=== PATIENT | female | born 1960 | race Caucasian/White ===

== ENCOUNTER 2019-03-06 08:23 | Emergency (ER) | payer MEDICAID ==
[~2019-03-06] VITALS: Ht 162.6 cm; Wt 61.1 kg
[~2019-03-06 08:23] MED LIST: BECL7.3A7 INH; CALC300T4 PO; ESOM20CA PO; FERR325C PO; IBUP-1984 PO; LISI40TA4 PO; METO25TA6 PO
[2019-03-06 08:27] VITALS: BP 158/111
[2019-03-07] MEDS ORDERED: HYDR-4383 PO (14:52)
[2019-03-07] MEDS ORDERED: AMLO2.5T2 PO (14:52)
== END 2019-03-06 10:06 | disposition home or self-care (01) ==
LOC: ER 08:25
DX: R07.81 Pleurodynia (principal); I10 Essential (primary) hypertension; J44.9 Chronic obstructive pulmonary disease, unspecified; F12.90 Cannabis use, unspecified, uncomplicated; F15.90 Other stimulant use, unspecified, uncomplicated; F10.99 Alcohol use, unspecified with unspecified alcohol-induced disorder; Z98.890 Other specified postprocedural states; Z90.89 Acquired absence of other organs; Z56.0 Unemployment, unspecified; Z79.899 Other long term (current) drug therapy; W01.0XXA Fall on same level from slipping, tripping and stumbling without subsequent striking against object, initial encounter; Y93.89 Activity, other specified; Y92.89 Other specified places as the place of occurrence of the external cause; Y99.8 Other external cause status; Y90.9 Presence of alcohol in blood, level not specified
CPT/HCPCS: 99281

== ENCOUNTER 2019-03-08 10:23 | Day surgery (SDC) | payer MEDICAID ==
[2019-03-08] VITALS (7 sets, daily range): BP systolic 115–160; BP diastolic 67–92
[~2019-03-08] VITALS: Ht 165.1 cm; Wt 61.1 kg
[~2019-03-08 10:23] MED LIST changes: +AMLO2.5T2 PO; -CALC300T4 PO; -ESOM20CA PO; -FERR325C PO; +HYDR-4383 PO; -IBUP-1984 PO; -LISI40TA4 PO; -METO25TA6 PO
[2019-03-08] MEDS ORDERED: ceFAZolin 1GM/D5W- ADD-VANTAGE 50 ML IV ONE (11:00)
[2019-03-08] MEDS ORDERED: ringers solution, lacted 1,000 ML IV SCH ×2 (11:00→14:06)
[2019-03-08] MEDS ORDERED: famotidine 20mg tablet PO ONE (11:00)
[2019-03-08 11:27] LABS: BASOPHILS # (AUTO) 0.1 X10'3 (0-0.2); BASOPHILS % (AUTO) 1.3 % (0-1); EOSINOPHILS # (AUTO) 0.3 X10'3 (0-0.9); EOSINOPHILS % (AUTO) 4.2 % (0-6); LYMPHOCYTES # (AUTO) 1.7 X10'3 (1.1-4.8); MEAN CORPUSCULAR HEMOGLOBIN 32.2 PG (27.0-31.0); MEAN CORPUSCULAR HGB CONC 33.9 g/dL (33.0-36.5); MEAN PLATELET VOLUME 9.9 FL (7.4-10.4); MONOCYTES # (AUTO) 0.6 X10'3 (0-0.9); MONOCYTES % (AUTO) 9.6 % (2-12); NEUTROPHILS # (AUTO) 3.4 X10'3 (1.8-7.7); NEUTROPHILS % (AUTO) 56.9 % (42-75); PRE OP HEMOGLOBIN 15.6 g/dL (12.0-16.0); PRE OP PLATELET COUNT 152 X10'3 (140-440); RED BLOOD COUNT 4.84 X10'6 (4.20-5.60)
[2019-03-08 11:36] LABS: ALBUMIN 3.4 G/DL (3.4-5.0); ALKALINE PHOSPHATASE 76 IU/L (46-116); BLOOD UREA NITROGEN 15 MG/DL (7-18); BUN/CREATININE RATIO 19.2 (6.6-38.0); CALCIUM 9.1 MG/DL (8.5-10.1); CHLORIDE 107 MMOL/L (99-107); CREATININE 0.78 MG/DL (0.40-0.90); PRE OP ALT 17 U/L (30-65); PRE OP ANION GAP 7 (8-16); PRE OP AST 15 U/L (10-37); PRE OP BILIRUB, TOTAL 0.4 MG/DL (0.0-1.0); PRE OP GLUCOSE 88 MG/DL (70-104); PRE OP POTASSIUM 4.2 MMOL/L (3.4-5.1); PRE OP SODIUM 140 MMOL/L (135-145); TOTAL CARBON DIOXIDE 25.6 MMOL/L (24-32); TOTAL PROTEIN 6.9 G/DL (6.4-8.2); eGFR 76 ML/MIN
[2019-03-08] MEDS ORDERED: BUPIVAcaine/PF 2.5 mg/ml (0.25%) 30ml vial ONE (12:19)
[2019-03-08 12:54] LABS: PRE OP PROTIME 10.3 SECONDS (9.0-12.0)
[2019-03-08] MEDS ORDERED: cloNIDine hcl/PF 100mcg/ml inj ONE (12:56)
[2019-03-08] MEDS ORDERED: ROPIVAcaine 0.5% (5mg/ml) 30ml vial ONE (12:56)
[2019-03-08] MEDS ORDERED: sevoflurane 250ml liquid IH ONE (13:16)
[2019-03-08] MEDS ORDERED: labetalol 20mg/4ml (5mg/ml) syringe IV ONE (13:16)
[2019-03-08] MEDS ORDERED: fentaNYL/PF 50MCG/1 ML 2ML syringe ONE (13:20)
[2019-03-08] MEDS ORDERED: midazolam 2 mg/2 ml injection ONE (13:20)
[2019-03-08] MEDS ORDERED: propofol inj 20 ML IV ONE (13:21)
[2019-03-08] MEDS ORDERED: ondansetron/PF 4mg/2ml inj IV PRN (14:10)
[2019-03-08] MEDS ORDERED: proCHLORperazine 10 MG/2 ml inj IV PRN (14:10)
[2019-03-08] MEDS ORDERED: morphine 4 MG/ML inj SYRINge IV PRN ×2 (14:10)
[2019-03-08] MEDS ORDERED: meperidine/PF 25mg/ml syringe IV PRN ×3 (14:10)
--- NOTE | 2019-03-08 14:25 | NUR ---
Received from OR via BED, accompanied by Anesthesiologist DR MANUEL-- and report given by Anesthesiolgist. PATIENT A&OX4, DENIES PAIN, V/S WNL, NEUROVASCULAR CHECKS INTACT, 20G PIV LUE, SCD ON, SPLINT DRESSING CDI TO GONZALES
--- NOTE | 2019-03-08 15:15 | NUR ---
PATIENT A&OX4, DENIES PAIN, V/S WNL, NEUROVASCULAR CHECKS INTACT, 20G PIV LUE D/C, SCD OFF, SPLINT DRESSING CDI TO RUE. I HAVE REVIEWED D/C INSTRUCTIONS WITH PATIENT AND FAMILY AND THEY HAVE VERBALIZED UNDERSTANDING. PATIENT D/C HOME WITH ALL BELONGINGS AND FAMILY GAVE TRANSPORT HOME
== END 2019-03-08 15:15 | disposition home or self-care (01) ==
LOC: PRE-OP 10:23 → PAS 15:15
PROVIDERS: ATTEND Orthopaedic Surgery
DX: S52.571A Other intraarticular fracture of lower end of right radius, initial encounter for closed fracture (principal); I10 Essential (primary) hypertension; D64.9 Anemia, unspecified; J44.9 Chronic obstructive pulmonary disease, unspecified; F17.210 Nicotine dependence, cigarettes, uncomplicated; Z79.899 Other long term (current) drug therapy; Z79.01 Long term (current) use of anticoagulants; X50.9XXA Other and unspecified overexertion or strenuous movements or postures, initial encounter; Y93.89 Activity, other specified; Y92.89 Other specified places as the place of occurrence of the external cause; Y99.8 Other external cause status; Z98.890 Other specified postprocedural states
CPT/HCPCS: 25609; 36415; 71045; 73100; 76000; 80053; 85025; 85610; 85730; 93005; A6222; C1713; J0690; J0735; J2250; J2704; J3010; J3490; J7120; A4618; A6449; A7000; J2795

== ENCOUNTER 2020-02-04 08:06 | Emergency (ER) | payer MEDICAID ==
[~2020-02-04] VITALS: Ht 165.1 cm; Wt 63.0 kg
[~2020-02-04 08:06] MED LIST changes: +LIDOcaine 1% W/epiNEPHrine 1:100,000 20ml vial ONE
[2020-02-04 08:09] VITALS: BP 219/128
[2020-02-04] MEDS ORDERED: HYDROcodone/acetaminophen 5mg/325mg tablet PO ONE (08:25)
[2020-02-04] MEDS ORDERED: ondansetron 4mg rapidly disintigrating tab PO ONE (08:25)
[2020-02-04] MEDS ORDERED: ketorolac trometh inj. 60 MG/2 ML VIAL IM ONE (08:25)
[2020-02-04] MEDS ORDERED: triamcinolone acetonide 40mg/ml inj IM ONE (08:25)
[2020-02-04] MEDS ORDERED: acetaminophen 325mg tablet PO ONE (08:25)
[2020-02-04] MEDS ORDERED: ketorolac trometh. 30mg/ml inj. IM ONE (08:25)
== END 2020-02-04 09:23 | disposition home or self-care (01) ==
LOC: ER 08:07
DX: M25.512 Pain in left shoulder (principal); I10 Essential (primary) hypertension; J44.9 Chronic obstructive pulmonary disease, unspecified; F12.90 Cannabis use, unspecified, uncomplicated; F15.90 Other stimulant use, unspecified, uncomplicated; Z98.890 Other specified postprocedural states; Z56.0 Unemployment, unspecified; Z72.89 Other problems related to lifestyle; Z95.1 Presence of aortocoronary bypass graft; Z79.899 Other long term (current) drug therapy
CPT/HCPCS: 20610; 93005; 96372; 99284; J1885

== ENCOUNTER 2021-12-20 13:47 | Emergency (ER) | payer MEDICAID ==
[~2021-12-20] VITALS: Ht 162.6 cm; Wt 58.3 kg
[~2021-12-20 13:47] MED LIST changes: -LIDOcaine 1% W/epiNEPHrine 1:100,000 20ml vial ONE
[2021-12-20] MEDS ORDERED: benzonatate 100mg capsule PO ONE (17:35)
--- NOTE | 2021-12-20 18:03 | NUR ---
MALINDA BENJAMIN INFORMED OF PT BP 215/119. VERBAL ORDER RECEIVED FOR HYDRALAZINE 10MG IV PUSH X1 DOSE NOW. ORDERS PLACED RECEIVED. PT DENIES CP
[2021-12-20] MEDS ORDERED: hydrALAZINE 20mg/ml inj. IV ONE (18:05)
[2021-12-20] MEDS ORDERED: amLODIPine 5mg tablet PO ONE (18:20)
[2021-12-20 18:23] LABS: D-DIMER 0.72 MG/L FEU (0-0.50); MEAN PLATELET VOLUME 9.5 FL (7.4-10.4); MONOCYTES # (AUTO) 0.8 X10'3 (0-0.9); PLATELET COUNT 207 X10'3 (140-440)
[2021-12-20 18:27] LABS: ALANINE AMINOTRANSFERASE 21 U/L (12-78); ALBUMIN/GLOBULIN RATIO 0.8 (1.1-1.5); ALKALINE PHOSPHATASE 92 IU/L (46-116); ANION GAP 12 (8-16); ASPARTATE AMINO TRANSFERASE 25 U/L (10-37); BASOPHILS # (AUTO) 0.1 X10'3 (0-0.2); BILIRUBIN,TOTAL 0.6 MG/DL (0.1-1.0); BLOOD UREA NITROGEN 22 MG/DL (7-18); BUN/CREATININE RATIO 15.9 (6.6-38.0); CALCIUM 8.7 MG/DL (8.5-10.1); CHLORIDE 109 MMOL/L (99-107); CREATININE 1.38 MG/DL (0.40-0.90); EOSINOPHILS # (AUTO) 0.1 X10'3 (0-0.9); EOSINOPHILS % (AUTO) 1.7 % (0-6); GLUCOSE 99 MG/DL (70-104); HEMATOCRIT 43.8 % (35.0-45.0); HEMOGLOBIN 14.4 g/dl (12.0-16.0); LYMPHOCYTES # (AUTO) 1.5 X10'3 (1.1-4.8); LYMPHOCYTES % (AUTO) 21.3 % (21-51); MEAN CORPUSCULAR HEMOGLOBIN 28.8 PG (27.0-31.0); MEAN CORPUSCULAR HGB CONC 32.9 g/dL (33.0-36.5); MEAN CORPUSCULAR VOLUME 87.6 FL (78-98); MONOCYTES % (AUTO) 12.3 % (2-12); NEUTROPHILS # (AUTO) 4.4 X10'3 (1.8-7.7); NEUTROPHILS % (AUTO) 63.7 % (42-75); POTASSIUM 4.2 MMOL/L (3.5-5.1); RED CELL DISTRIBUTION WIDTH 17.8 % (11.5-14.5); SODIUM 144 MMOL/L (135-145); TOTAL CARBON DIOXIDE 23.1 MMOL/L (24-32); TOTAL PROTEIN 6.8 G/DL (6.4-8.2); WHITE BLOOD COUNT 6.9 X10'3 (4.5-11.0); eGFR 39 ML/MIN
[2021-12-20] MEDS ORDERED: furosemide 10 MG/1 ML 10ml inj IV ONE (20:15)
[2021-12-20] MEDS ORDERED: AMLO5TAB PO (20:19)
[2021-12-20] MEDS ORDERED: CEPH250T PO (20:19)
[2021-12-20] MEDS ORDERED: FURO-150 PO (20:19)
[2021-12-20 21:47] VITALS: BP 162/87
== END 2021-12-20 21:50 | disposition home or self-care (01) ==
LOC: ER 13:48
DX: E87.70 Fluid overload, unspecified (principal); I10 Essential (primary) hypertension; J44.9 Chronic obstructive pulmonary disease, unspecified; F12.90 Cannabis use, unspecified, uncomplicated; F15.90 Other stimulant use, unspecified, uncomplicated; Z56.0 Unemployment, unspecified; Z72.89 Other problems related to lifestyle; Z90.89 Acquired absence of other organs; Z98.890 Other specified postprocedural states
CPT/HCPCS: 71045; 80053; 83880; 84484; 85025; 85379; 85610; 93005; 93971; 96374; 96375; 99285; J0360; J1940

== ENCOUNTER 2022-06-12 09:40 | Emergency (ER) | payer MEDICAID ==
[~2022-06-12] VITALS: Ht 162.6 cm; Wt 59.5 kg
[~2022-06-12 09:40] MED LIST changes: +AMLO5TAB PO
[2022-06-12 10:20] LABS: BASOPHILS # (AUTO) 0.1 X10'3 (0-0.2); BASOPHILS % (AUTO) 1.1 % (0-1); EOSINOPHILS # (AUTO) 0.2 X10'3 (0-0.9); EOSINOPHILS % (AUTO) 2.2 % (0-6); HEMATOCRIT 46.5 % (35.0-45.0); HEMOGLOBIN 15.1 g/dl (12.0-16.0); LYMPHOCYTES # (AUTO) 1.6 X10'3 (1.1-4.8); LYMPHOCYTES % (AUTO) 19.7 % (21-51); MEAN CORPUSCULAR HEMOGLOBIN 29.9 PG (27.0-31.0); MEAN CORPUSCULAR HGB CONC 32.4 g/dL (33.0-36.5); MEAN CORPUSCULAR VOLUME 92.2 FL (78-98); MEAN PLATELET VOLUME 9.6 FL (7.4-10.4); MONOCYTES # (AUTO) 0.9 X10'3 (0-0.9); MONOCYTES % (AUTO) 10.8 % (2-12); NEUTROPHILS # (AUTO) 5.5 X10'3 (1.8-7.7); NEUTROPHILS % (AUTO) 66.2 % (42-75); PLATELET COUNT 198 X10'3 (140-440); RED BLOOD COUNT 5.04 X10'6 (4.20-5.60); RED CELL DISTRIBUTION WIDTH 15.9 % (11.5-14.5); WHITE BLOOD COUNT 8.3 X10'3 (4.5-11.0)
[2022-06-12 11:42] LABS: ANION GAP 8 (8-16); BLOOD UREA NITROGEN 39 MG/DL (7-18); CHLORIDE 103 MMOL/L (99-107); GLUCOSE 106 MG/DL (70-104); SODIUM 139 MMOL/L (135-145); TOTAL CARBON DIOXIDE 28.5 MMOL/L (24-32)
[2022-06-12 11:43] LABS: ALBUMIN 3.2 G/DL (3.4-5.0); ALBUMIN/GLOBULIN RATIO 0.8 (1.1-1.5); BILIRUBIN,TOTAL 0.7 MG/DL (0.1-1.0); BUN/CREATININE RATIO 22.8 (6.6-38.0); CALCIUM 9.4 MG/DL (8.5-10.1); CREATININE 1.71 MG/DL (0.40-0.90); MAGNESIUM 2.1 MG/DL (1.5-2.4); TOTAL PROTEIN 7.1 G/DL (6.4-8.2); eGFR 30 ML/MIN
[2022-06-12 11:44] LABS: ALANINE AMINOTRANSFERASE 25 U/L (12-78); ALKALINE PHOSPHATASE 105 IU/L (46-116); ASPARTATE AMINO TRANSFERASE 39 U/L (10-37)
[2022-06-12] MEDS ORDERED: FURO-150 PO (11:59)
[2022-06-12] MEDS ORDERED: furosemide 20MG tablet PO ONE (12:00)
[2022-06-12] MEDS ORDERED: furosemide 10 MG/1 ML 10ml inj IV ONE (12:10)
[2022-06-12 13:22] VITALS: BP 187/87
== END 2022-06-12 13:26 | disposition home or self-care (01) ==
LOC: ER 09:41
DX: E87.70 Fluid overload, unspecified (principal); I10 Essential (primary) hypertension; J44.9 Chronic obstructive pulmonary disease, unspecified; Z79.899 Other long term (current) drug therapy
CPT/HCPCS: 36415; 71045; 80053; 83735; 83880; 84484; 85025; 93005; 96374; 99285; J1940

== ENCOUNTER 2023-08-07 05:00 | Emergency (ER) | payer MEDICAID ==
[~2023-08-07] VITALS: Ht 162.6 cm; Wt 60.0 kg
[~2023-08-07 05:00] MED LIST changes: -AMLO2.5T2 PO; -AMLO5TAB PO; -BECL7.3A7 INH; +CARV3.12 PO; +EMPA10TA PO; +FURO40TA4 PO; -HYDR-4383 PO; +LOSA25TA41 PO; +SPIR25TA PO
[2023-08-07] MEDS ORDERED: cloNIDine 0.1 mg tablet PO STA (06:22)
[2023-08-07] MEDS ORDERED: losartan 50mg tablet PO SCH (08:00)
[2023-08-07 08:40] VITALS: BP 191/108; PULSE 78; RESP 16; TEMP 97.7; O2SAT 94
== END 2023-08-07 08:42 | disposition home or self-care (01) ==
LOC: ER 05:00
DX: R04.0 Epistaxis (principal); I10 Essential (primary) hypertension; J44.9 Chronic obstructive pulmonary disease, unspecified; F17.210 Nicotine dependence, cigarettes, uncomplicated; Z72.89 Other problems related to lifestyle; F12.90 Cannabis use, unspecified, uncomplicated; Z56.0 Unemployment, unspecified; Z98.890 Other specified postprocedural states; Z90.89 Acquired absence of other organs
CPT/HCPCS: 99285

== ENCOUNTER 2023-08-10 03:48 | Emergency (ER) | payer MEDICAID ==
[~2023-08-10] VITALS: Ht 162.6 cm; Wt 60.0 kg
[2023-08-10 03:51] VITALS: TEMP 98
[2023-08-10] MEDS: ondansetron 4mg rapidly disintigrating tab PO ONE (04:05)
[2023-08-10] MEDS: oxymetazoline 15 ML nasal spray NS ONE (04:25)
[2023-08-10] MEDS: tranexamic acid 100mg/ml inj. TP ONE (04:25)
[2023-08-10] MEDS ORDERED: SULF1TAB49 PO (05:52)
[2023-08-10] MEDS: LIDOcaine Viscous 15ml cup MM ONE (06:09)
[2023-08-10 06:10] VITALS: BP 160/79; PULSE 89; RESP 16; O2SAT 97
[2023-08-10] MEDS: phenylephrine 1% (X-tra strg) 15ml nasal spray NS ONE (07:18)
[2023-08-10] MEDS: LIDOcaine 4% (40 mg/ml) topical solution 50ml TP ONE (07:18)
[2023-08-10] MEDS: HYDROcodone/acetaminophen 5mg/325mg tablet PO ONE (08:02)
== END 2023-08-10 08:42 | disposition home or self-care (01) ==
LOC: ER 03:49
DX: R04.0 Epistaxis (principal); I10 Essential (primary) hypertension; J44.9 Chronic obstructive pulmonary disease, unspecified; F15.90 Other stimulant use, unspecified, uncomplicated; Z79.899 Other long term (current) drug therapy; Z79.2 Long term (current) use of antibiotics; F12.90 Cannabis use, unspecified, uncomplicated
CPT/HCPCS: 30901; 99284